=== PATIENT | male | born 1990 | race Caucasian/White ===

== ENCOUNTER → 2019-06-15 | Outpatient (CLI) | payer BC ==
[~2019-06-15] MED LIST: RT-ALBUTEROL SULF 2.5 MG/3 ML PRE-MIX VIAL INH ONE; RT-ALBUTEROL SULF 2.5 MG/3 ML PRE-MIX VIAL ONE
== END ==
LOC: RT 08:35
PROVIDERS: ATTEND Internal Medicine Critical Care Medicine
DX: Z72.0 Tobacco use (principal)
CPT/HCPCS: 94060; 94726; 94729